=== PATIENT | male | born 1990 | race Caucasian/White ===

== ENCOUNTER 2022-05-27 19:39 | Emergency (ER) | payer OTHER, SELFPAY ==
--- NOTE | ~2022-05-27 | XR_ITS ---
EXAMINATION: XR wrist LT min 3V DATE: 05/27/2022 19:58 INDICATION: Left wrist pain TECHNIQUE: Posteroanterior, ulnar deviation, oblique, and lateral views of the left wrist were obtain ed. COMPARISON: none FINDINGS: Alignment is normal. No fracture. Joint spaces are normal. No erosions. Soft tissues are unremarkable . IMPRESSION: 1. Negative left wrist radiographs. Reviewed, dictated and finalized at location A.
[2022-05-27 19:47] VITALS: BP 122/78; PULSE 93; RESP 18; TEMP 36.9; O2SAT 98
--- NOTE | 2022-05-27 20:35 | ED.UPPEXIN ---
HPI - Extremity Injury (Upper) General Chief Complaint: Extremity Injury, Upper Stated Complaint: left wrist pain Time Seen by Provider: 05/27/22 20:09 Source: RN notes reviewed History of Present Illness HPI narrative: Patient presents emergency department from home for left wrist pain. Patient states left wrist has been hurting for the proximately the past 4 to 5 days. 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 states it hurts to make a full fist he denies any direct trauma or injury states sometimes he will have tingling in his fingers but denies any at this time he denies any pain in his elbow denies any fevers or chills Related Data Allergies Allergy/AdvReac Type Severity Reaction Status Date / Time No Known Allergies Allergy Verified 05/27/22 20:09 Review of Systems Review of Systems: Gen.: Denies fevers or chills Musculoskeletal: See HPI Neuro: Denies numbness, tingling, weakness Skin: Denies rash Endo: Denies DM PMFSH Past Medical History Medical History (Updated 05/27/22 @ 20:38 by Thomas Singletary DO) Patient denies significant medical history Social History Social History (Updated 05/27/22 @ 20:36 by Thomas Singletary DO) Smoking status: Never smoker Exam Narrative: APPEARANCE: No acute distress, nontoxic, resting in bed Eyes: EOMI HEENT: Normocephalic, atraumatic, RESPIRATORY: No respiratory distress MUSCULOSKELETAl: Diffusely tender over the left wrist with no sign ecchymosis pain with flexion of the wrist full flexion-extension of all 5 MCP and IP joints, no tenderness of the elbow, radial pulse 2+ neurovascular intact NEURO: Awake and alert. Following commands, speech normal, no focal deficits SKIN:: Warm, dry. Normal Color no rash or lesions Course Course Emergency Course: Discussed with patient results of workup and diagnosis. Discussed need for follow-up with primary care, proper use of medication, and reasons to return to the emergency department. Patient understands and agrees to current treatment plan Vital Signs Vital signs: Vital Signs Temperature 98.4 F 05/27/22 19:47 Pulse Rate 93 05/27/22 19:47 Respiratory Rate 18 05/27/22 19:47 Blood Pressure 122/78 05/27/22 19:47 Pulse Oximetry 98 05/27/22 19:47 Temperature 98.4 F 05/27/22 19:47 Pulse Rate 93 05/27/22 19:47 Respiratory Rate 18 05/27/22 19:47 Blood Pressure 122/78 05/27/22 19:47 Pulse Oximetry 98 05/27/22 19:47 MDM - Extremity Injury (Upper) MDM Narrative Medical decision making narrative: Patient?s injury is consistent with muscular skeletal etiology. No signs of neurologic or vascular compromise to exam. Compartments are soft without signs of compartment syndrome. Pain is consistent with exam and injury. Suspect possible carpal tunnel discussed with patient obtaining a cock up wrist splint with follow-up with orthopedics Imaging Data Radiologist's impression: ITS Impressions Wrist X-Ray 05/27/22 20:12 IMPRESSION: 1. Negative left wrist radiographs. Discharge Plan Discharge Clinical Impression: Left wrist sprain Patient Disposition: Home, Self-Care Condition: Stable Instructions: Antibiotic Form, Carpal Tunnel Syndrome (DC), Wrist Sprain (ED) Additional Instructions: Return for increasing pain in the wrist numbness or tingling in the extremities or any other symptoms of concern. Obtain a cock up wrist splint from your local drugstore and wear it for the next 5 days Prescriptions: New ibuprofen 600 mg tablet 600 mg PO TID PRN (Reason: pain) Qty: 14 0RF Follow-up/Referrals: PHYSICIAN,WEIR FISHER [Primary Care Provider] - Tylor Herr MD [Physician] - (Follow-up in 1-2 days for further on-call physician treatment and evaluation) Jack Marie MD [Physicia
[2022-05-27] MEDS: IBUPROFEN 600 MG TABLET PO (20:39)
== END 2022-05-27 20:47 | disposition home or self-care (01) ==
PROVIDERS: Emergency Provider Emergency Medicine
DX: S63.502A Unspecified sprain of left wrist, initial encounter (principal); X50.3XXA Overexertion from repetitive movements, initial encounter; X50.0XXA Overexertion from strenuous movement or load, initial encounter
CPT/HCPCS: 73110; 99283; A9270